=== PATIENT | female | born 1995 | race Caucasian/White ===

== ENCOUNTER 2023-08-06 | Outpatient (REF) | payer OTHER, SELFPAY | END 2023-08-06 00:01 | disposition home or self-care (01) | LOC: LAB | PROVIDERS: Visit Provider Obstetrics & Gynecology | DX: Z01.419 Encounter for gynecological examination (general) (routine) without abnormal findings (principal) | CPT/HCPCS: G0145 ==

== ENCOUNTER 2024-08-11 12:22 | Outpatient (REF) | payer BC, SELFPAY ==
[2024-08-14 10:10] LABS: Age Gdln ACOG Testing Note (.); HPV Aptima Negative (Negative); IGP, Aptima HPV, rfx 16/18,45 Note (.)
== END 2024-08-11 12:23 | disposition home or self-care (01) ==
LOC: LAB 12:22
PROVIDERS: Visit Provider Obstetrics & Gynecology
DX: Z01.419 Encounter for gynecological examination (general) (routine) without abnormal findings (principal)
CPT/HCPCS: 87624; 88175